=== PATIENT | female | born 1975 | race African-American/Black ===

== ENCOUNTER 2020-10-22 15:02 | Outpatient (REF) | payer OTHER, SELFPAY | END 2020-10-22 15:03 | disposition home or self-care (01) | LOC: HO.LAB 15:02 | PROVIDERS: Visit Provider Internal Medicine | DX: Z20.828 Contact with and (suspected) exposure to other viral communicable diseases (principal) | CPT/HCPCS: C9803; U0003 ==

== ENCOUNTER 2020-11-20 15:51 | Outpatient (REF) | payer OTHER, SELFPAY | END 2020-11-20 15:52 | disposition home or self-care (01) | LOC: HO.LAB 15:51 | PROVIDERS: Visit Provider Internal Medicine | DX: Z20.822 Contact with and (suspected) exposure to COVID-19 (principal) | CPT/HCPCS: 36415; C9803; U0003 ==